=== PATIENT | male | born 1990 | race Caucasian/White ===

== ENCOUNTER 2020-08-04 01:39 | Emergency (ER) | payer SELFPAY ==
[~2020-08-04] VITALS: Ht 162.6 cm; Wt 66.0 kg
[2020-08-04 01:51] VITALS: BP 116/75
[2020-08-04] MEDS ORDERED: TETRACAINE 0.5% OPHTH DROPS 4ML LEFTEYE ONE (02:15)
[2020-08-04] MEDS ORDERED: FLUORESCEIN SODIUM 1MG/STRIP LEFTEYE ONE (02:15)
== END 2020-08-04 02:48 | disposition home or self-care (01) ==
LOC: ER 01:39
DX: H57.89 Other specified disorders of eye and adnexa (principal); H10.9 Unspecified conjunctivitis
CPT/HCPCS: 99283

== ENCOUNTER 2023-10-29 22:12 | Emergency (ER) | payer OTHER ==
[~2023-10-29] VITALS: Ht 162.6 cm; Wt 65.0 kg
[2023-10-29 22:25] VITALS: O2SAT 98
[2023-10-29] MEDS ORDERED: ONDANSETRON HCL 4MG/2ML INJ IV ONE (22:45)
[2023-10-29] MEDS ORDERED: SODIUM CHLORIDE 0.9% 1,000 ML IV ONE (22:45)
[2023-10-30 00:15] LABS: BASOPHILS % 1.2 % (0.0-2.0); EOSINOPHILS % 2.8 % (0.0-5.0); HEMATOCRIT. 41.9 % (42.0-52.0); LYMPHOCYTES % 26.2 % (20.0-50.0); MEAN CORPUSCULAR HEMOGLOBIN 29.2 pg (28.0-32.0); MEAN CORPUSCULAR HGB CONC 33.3 g/dL (31.0-37.0); MEAN CORPUSCULAR VOLUME 87.6 fL (80.0-94.0); MEAN PLATELET VOLUME 8.2 fl (7.4-10.4); MONOCYTES % 6.6 % (2.0-8.0); NEUTROPHILS % 63.2 % (40.0-76.0); PLATELET 225 x1000/uL (130-400); RED BLOOD CELL COUNT 4.79 mill/uL (4.7-6.1); RED CELL DISTRIBUTION WIDTH 13.4 % (11.6-14.6); WHITE BLOOD COUNT 7.2 x1000/uL (4.5-11.0)
[2023-10-30 00:34] LABS: AMMONIA 20 uMol/L (<32)
[2023-10-30 02:19] VITALS: BP 122/70; PULSE 87; RESP 16; TEMP 98.3
[2023-10-30 04:19] LABS: CARBON DIOXIDE 24 mEq/L (21-32); CHLORIDE 105 mEq/L (98-107); GLUCOSE 105 mg/dL (70-105); POTASSIUM 3.4 mEq/L (3.5-5.1); SODIUM 142 mEq/L (136-145)
[2023-10-30 04:20] LABS: ALANINE AMINOTRANSFERASE 20 IU/L (10-49); ALBUMIN 4.4 g/dL (3.2-4.8); ASPARTATE AMINOTRANSFERASE 29 IU/L (<34); BILIRUBIN TOTAL 0.4 mg/dL (0.1-1.0)
[2023-10-30 04:21] LABS: ACETAMINOPHEN < 2 ug/mL (10-30); ETHANOL BLOOD 280 mg/dL (<10)
[2023-10-30 04:37] LABS: PROTEIN TOTAL 7.8 g/dL (6.0-8.3); UREA NITROGEN BLOOD 8 mg/dL (9-23)
[2023-10-30] MEDS ORDERED: ONDA4TAB50 MT (06:42)
[2023-10-30 08:39] LABS: CREATININE 0.8 mg/dL (0.6-1.3)
== END 2023-10-30 08:16 | disposition home or self-care (01) ==
LOC: ER 22:12
DX: F10.129 Alcohol abuse with intoxication, unspecified (principal); R11.2 Nausea with vomiting, unspecified; G92.9 Unspecified toxic encephalopathy; Y90.8 Blood alcohol level of 240 mg/100 ml or more
CPT/HCPCS: 36415; 99283; 80053; 80307; 80329; 80320; 82140; 83690; 85025; J7030; G0480